=== PATIENT | male | born 1970 | race Caucasian/White ===

== ENCOUNTER 2023-08-07 08:21 | Outpatient (CLI) | payer OTHER, SELFPAY | END 2023-08-07 08:22 | disposition home or self-care (01) | LOC: NFLDREF 08-08 07:38 | PROVIDERS: PCP Emergency Medicine; Referring Provider Emergency Medicine; Visit Provider Emergency Medicine | DX: R63.5 Abnormal weight gain (principal) | CPT/HCPCS: 84443 ==

== ENCOUNTER 2023-10-06 19:34 | Outpatient (CLI) | payer OTHER, SELFPAY ==
--- NOTE | 2023-10-21 12:47 | W.PM.SLEEP ---
Sleep Study Details Details Interpreting Provider: Shirley Date of Sleep Study: 10/06/23 Sleep Study Details: STUDY TYPE:? Home unattended ? BMI:? 35 ORDERING PROVIDER:Tara Bo INDICATION:? Concern about sleep apnea ? SLEEP SUMMARY:? 445 minutes monitored RESPIRATORY SUMMARY:? AHI 41.4, supine 84.7, left lateral 13.1, right lateral 16.4 Low oxygen 75 55% of study oxygen less than 90% Snoring 96.2% PERIODIC LIMB MOVEMENTS OF SLEEP:? Not recorded CARDIAC:? 55-109, mean 82.2 beats per minute IMPRESSION:? Severe obstructive sleep apnea with supine position dependency and significant hypo oxygenation RECOMMENDATION: In-lab titration versus AutoSet CPAP. If AutoSet is chosen would recommend an overnight oximetry once effective therapy is established. Weight loss is recommended
== END 2023-10-06 19:35 | disposition home or self-care (01) ==
LOC: SLEEP 19:35
PROVIDERS: PCP Emergency Medicine; Visit Provider Otolaryngology
DX: G47.33 Obstructive sleep apnea (adult) (pediatric) (principal)
CPT/HCPCS: 95806